=== PATIENT | female | born 1995 | race Caucasian/White ===

== ENCOUNTER 2017-03-31 12:47 | Emergency (ER) | payer MEDICAID ==
[~2017-03-31] VITALS: Ht 162.6 cm; Wt 58.1 kg
[~2017-03-31 12:47] MED LIST: CEPH-368 PO; DOCU-30 PO; HYDR-3240 PO; IBUP800T PO; PRENATAL
[2017-03-31 12:53] VITALS: BP 127/83
== END 2017-03-31 14:14 | disposition home or self-care (01) ==
LOC: ED 14:07
DX: S29.012A Strain of muscle and tendon of back wall of thorax, initial encounter (principal); X58.XXXA Exposure to other specified factors, initial encounter; Y93.89 Activity, other specified; Y99.8 Other external cause status; Y92.89 Other specified places as the place of occurrence of the external cause
CPT/HCPCS: 72072

== ENCOUNTER 2019-01-30 17:48 | Emergency (ER) | payer MEDICAID ==
[~2019-01-30 17:48] MED LIST changes: +ALBU0.63 NEB; +DOCU-131 PO; -DOCU-30 PO; +IBUP-1223 PO; -IBUP800T PO
--- NOTE | 2019-01-30 18:34 | NUR ---
PT. WAS CALLED TWICE, NO ANSWER.
--- NOTE | 2019-01-30 19:23 | NUR ---
NO ANSWER AT THIS TIME. PT ELOPED FROM [facility]
== END 2019-01-30 19:25 | disposition left against medical advice (07) ==
LOC: ED 19:19
DX: R06.02 Shortness of breath (principal); R05 Cough; Z53.21 Procedure and treatment not carried out due to patient leaving prior to being seen by health care provider

== ENCOUNTER 2019-02-28 14:42 | Emergency (ER) | payer MEDICAID ==
[~2019-02-28] VITALS: Ht 162.6 cm; Wt 59.0 kg
[2019-02-28 14:45] VITALS: BP 127/82
[2019-02-28 15:08] LABS: BASOPHILS # (AUTO) 0.04 x10^3/uL (0-0.1); BASOPHILS % (AUTO) 1 % (0-1); EOSINOPHILS # (AUTO) 0.18 x10^3/uL (0-0.4); EOSINOPHILS % (AUTO) 3 % (1-7); LYMPHOCYTES # (AUTO) 2.58 x10^3/uL (1-3.4); LYMPHOCYTES % (AUTO) 37 % (22-44); MD NO; MEAN CORPUSCULAR HEMOGLOBIN 29.6 pg (27.0-34.8); MEAN CORPUSCULAR HGB CONC 34.1 g/dL (32.4-35.8); MEAN CORPUSCULAR VOLUME 86.6 fL (80-100); MONOCYTES # (AUTO) 0.39 x10^3/uL (0.2-0.8); MONOCYTES % (AUTO) 6 % (2-9); NEUTROPHILS # (AUTO) 3.79 x10^3/uL (1.8-6.8); NEUTROPHILS % (AUTO) 54 % (42-75); PLATELET COUNT 223 x10^3/uL (130-400); RED BLOOD COUNT 4.71 x10^6/uL (3.82-5.3); RED CELL DISTRIBUTION WIDTH 13.7 % (9.6-15.2)
[2019-02-28 15:51] LABS: MICROSCOPIC INDICATED
[2019-02-28 16:20] LABS: CULTURE INDICATED? NO
== END 2019-02-28 16:39 | disposition home or self-care (01) ==
LOC: ED 16:19
DX: A64 Unspecified sexually transmitted disease (principal); N94.89 Other specified conditions associated with female genital organs and menstrual cycle; J45.909 Unspecified asthma, uncomplicated
CPT/HCPCS: 36415; 76830; 81001; 81025; 85025; 99284

== ENCOUNTER 2019-05-12 13:22 | Emergency (ER) | payer MEDICAID ==
[~2019-05-12] VITALS: Ht 162.6 cm; Wt 55.0 kg
--- NOTE | 2019-05-12 13:50 | NUR ---
PT IN ROOM IN BED. BOYFRIEND IN BED WITH PT. PT APPEARS CALM AND IN NO OBVIOUS DISTRESS. RESPS EVEN AND UNLABORED.
[2019-05-12] MEDS ORDERED: ALBUTEROL SULFATE 2.5 MG/3 ML NPPB SCH (14:00)
[2019-05-12] MEDS ORDERED: ALBUTEROL SULFATE 2.5 MG/3 ML ONE (14:01)
--- NOTE | 2019-05-12 15:08 | NUR ---
Patient given discharge instructions and they have confirmed that they understand the instructions. Patient ambulatory with steady gait. Pt left with all personal belongings, d/c paperwork, and prescription. Pt encouraged to return to ED if symptoms worsen or condition changes.
[2019-05-12 15:09] VITALS: BP 119/67
== END 2019-05-12 15:12 | disposition home or self-care (01) ==
LOC: ED 14:12
DX: J45.901 Unspecified asthma with (acute) exacerbation (principal); J02.9 Acute pharyngitis, unspecified; F17.200 Nicotine dependence, unspecified, uncomplicated
CPT/HCPCS: 94640; 99283; J7512; J7613

== ENCOUNTER 2019-09-19 18:50 | Emergency (ER) | payer MEDICAID ==
[~2019-09-19] VITALS: Ht 162.6 cm; Wt 54.8 kg
[2019-09-19 19:08] VITALS: BP 108/50
[2019-09-19 19:44] LABS: BASOPHILS # (AUTO) 0.09 x10^3/uL (0-0.1); BASOPHILS % (AUTO) 1 % (0-1); EOSINOPHILS # (AUTO) 0.17 x10^3/uL (0-0.4); EOSINOPHILS % (AUTO) 2 % (1-7); LYMPHOCYTES % (AUTO) 19 % (22-44); MD NO; MEAN CORPUSCULAR HEMOGLOBIN 30.9 pg (27.0-34.8); MEAN CORPUSCULAR HGB CONC 33.7 g/dL (32.4-35.8); MEAN CORPUSCULAR VOLUME 91.7 fL (80-100); MEAN PLATELET VOLUME 7.6 fL (7.4-10.4); MONOCYTES # (AUTO) 0.53 x10^3/uL (0.2-0.8); MONOCYTES % (AUTO) 6 % (2-9); NEUTROPHILS % (AUTO) 71 % (42-75); PLATELET COUNT 273 x10^3/uL (130-400); RED BLOOD COUNT 4.13 x10^6/uL (3.82-5.3)
[2019-09-19 19:53] LABS: ALBUMIN 3.9 g/dL (3.4-5.0); ANION GAP 7 mmol/L (5-15); CALCIUM 8.6 mg/dL (8.5-10.1); CHLORIDE 108 mmol/L (98-107); CREATININE 0.87 mg/dL (0.55-1.02)
== END 2019-09-19 21:40 | disposition home or self-care (01) ==
LOC: ED 19:35
DX: O20.0 Threatened abortion (principal); J45.909 Unspecified asthma, uncomplicated
CPT/HCPCS: 36415; 76801; 80048; 82040; 84702; 85025; 86901; 99284

== ENCOUNTER 2019-12-09 07:21 | Emergency (ER) | payer MEDICAID ==
[~2019-12-09] VITALS: Ht 162.6 cm; Wt 55.2 kg
[2019-12-09 07:23] VITALS: BP 130/81
[2019-12-09 08:39] LABS: RAPID INFLUENZA A Negative (Negative); RAPID INFLUENZA B Negative (Negative)
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
--- NOTE | 2019-12-09 09:25 | NUR ---
PT GIVEN DC INSTRUCTIONS AND SCRIPT, EDUCATED REGARDING RX FOR TESSALON AND ALBUTEROL. PT AMB TO DC DESK WITH STEADY GAIT, NADN AT DC.
== END 2019-12-09 09:25 | disposition home or self-care (01) ==
LOC: ED 09:14
DX: J00 Acute nasopharyngitis [common cold] (principal); J45.909 Unspecified asthma, uncomplicated; F17.210 Nicotine dependence, cigarettes, uncomplicated
CPT/HCPCS: 71046; 87400; 99284

== ENCOUNTER 2020-12-17 08:01 | Emergency (ER) | payer MEDICAID ==
[~2020-12-17] VITALS: Ht 162.6 cm; Wt 55.8 kg
[~2020-12-17 08:01] MED LIST changes: +HYDR-1067 PO; -HYDR-3240 PO
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
[2020-12-17 08:49] LABS: HCG UR SG 1.024 (1.003-1.030)
[2020-12-17 08:56] LABS: MICROSCOPIC INDICATED
--- NOTE | 2020-12-17 09:51 | NUR ---
[employer] AT BEDSIDE
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
[2020-12-17 10:38] VITALS: BP 124/83
--- NOTE | 2020-12-17 10:48 | NUR ---
PATIENT DRESSED, PROVIDED WITH MEAL, WAITING FOR TRANSPORT FOR SART EXAM BY [employer].
== END 2020-12-17 11:10 | disposition home or self-care (01) ==
LOC: ED 09:07
DX: R10.2 Pelvic and perineal pain (principal); K62.89 Other specified diseases of anus and rectum; M79.89 Other specified soft tissue disorders
CPT/HCPCS: 81001; 81025; 99283

== ENCOUNTER 2021-08-02 11:55 | Emergency (ER) | payer MEDICAID ==
[~2021-08-02] VITALS: Ht 162.6 cm; Wt 61.0 kg
[~2021-08-02 11:55] MED LIST changes: -HYDR-1067 PO; +HYDR-2214 PO
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
--- NOTE | 2021-08-02 13:09 | NUR ---
Right sided abdominal pain x 4 days, no fever, no chills no n/v/d. Took OTC meds with no relief. AWATING MD JEAN
[2021-08-02] MEDS ORDERED: MORPHINE SULFATE 4 MG/ML, 1ML ONE (14:22)
[2021-08-02] MEDS ORDERED: ONDANSETRON 2MG/ML, 2ML ONE (14:22)
[2021-08-02 14:29] LABS: MICROSCOPIC NOT IND
[2021-08-02] MEDS ORDERED: MORPHINE SULFATE 4 MG/ML, 1ML IVPush PRN (14:30)
[2021-08-02] MEDS ORDERED: ONDANSETRON 2MG/ML, 2ML IVPush ONE (14:30)
[2021-08-02] MEDS ORDERED: SODIUM CHLORIDE FLUSH 10ML SYR IVF ONE (14:30)
[2021-08-02] MEDS ORDERED: SODIUM CHLORIDE 0.9% 1,000ML IVBOLUS ONE (14:30)
[2021-08-02 14:39] LABS: BASOPHILS % (AUTO) 1 % (0-1); EOSINOPHILS % (AUTO) 7 % (1-7); LYMPHOCYTES % (AUTO) 20 % (22-44); MEAN CORPUSCULAR HEMOGLOBIN 30.3 pg (27.0-34.8); MEAN PLATELET VOLUME 7.1 fL (7.4-10.4); MONOCYTES % (AUTO) 6 % (2-9); NEUTROPHILS % (AUTO) 66 % (42-75); PLATELET COUNT 325 x10^3/uL (130-400); RED BLOOD COUNT 4.99 x10^6/uL (3.82-5.3); RED CELL DISTRIBUTION WIDTH 13.2 % (9.6-15.2)
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
[2021-08-02 14:49] LABS: ALBUMIN 4.1 g/dL (3.4-5.0); ANION GAP 5 mmol/L (5-15); CHLORIDE 108 mmol/L (98-107)
[2021-08-02 14:55] LABS: ALANINE AMINOTRANSFERASE 19 U/L (12-78); ALKALINE PHOSPHATASE 100 U/L (45-117); BILIRUBIN,TOTAL 0.5 mg/dL (0.2-1.0); CREATININE 0.77 mg/dL (0.55-1.02); TOTAL PROTEIN 8.5 g/dL (6.4-8.2)
[2021-08-02 16:22] VITALS: BP 124/74
== END 2021-08-02 16:24 | disposition home or self-care (01) ==
LOC: ED 15:01
DX: R10.11 Right upper quadrant pain (principal); J45.909 Unspecified asthma, uncomplicated
CPT/HCPCS: 36415; 76700; 80053; 81003; 83690; 84703; 85025; 96374; 96375; 99284; J2270; J2405; J7030